=== PATIENT | female | born 1950 | race Caucasian/White ===

== ENCOUNTER 2020-02-17 10:54 | Inpatient (IN) ==
[2020-02-10 16:24] LABS: INR 0.9 (0.9-1.1); Prothrombin Time 12.6 sec (11.9-14.5)
[2020-02-10 16:41] LABS: Basophils # (Auto) 0.06 K/mcL (0.00-0.30); Eosinophils # (Auto) 0.38 K/mcL (0.00-0.70); Eosinophils % (Auto) 6.5 % (0.0-7.0); Granulocytes % (Auto) 54.3 % (38.0-78.0); Hematocrit 38.8 % (34.1-44.9); Hemoglobin 12.7 g/dL (11.2-15.7); Lymphocytes # (Auto) 1.69 K/mcL (1.50-4.80); Lymphocytes % (Auto) 28.7 % (15.5-49.0); Mean Cell Volume 92.6 fL (80.0-100.0); Mean Corpuscular HGB Conc 32.7 g/dL (31.0-36.0); Mean Platelet Volume 9.7 fL (7.4-10.4); Monocytes # (Auto) 0.56 K/mcL (0.10-0.90); Monocytes % (Auto) 9.5 % (1.0-12.0); Platelet Count 185 K/mcL (140-440); RBC 4.19 M/mcL (3.59-5.38); Red Cell Distribution Width 12.3 % (11.5-14.5); WBC 5.9 K/mcL (4.50-11.00)
[2020-02-10 17:33] LABS: Appearance,Urine CLEAR; Bilirubin,Urine NEG (NEG); Color,Urine YELLOW; Culture Indicated,Urine NO; Glucose,Urine (UA) NEGATIVE (NEG); Ketones,Urine 5/TR mg/dL (NEG); Leukocyte Esterase,Urine NEG /uL (NEG); Nitrate,Urine NEG (NEG); Protein,Urine NEG (NEG); Urine Blood NEG mg/dL (<0.03); Urobilinogen,Urine NEG (NEG)
[2020-02-10 17:49] LABS: Blood Urea Nitrogen 24 mg/dl (8-23); Calcium 9.2 mg/dl (8.6-10.4); Carbon Dioxide 25 mmol/L (22-30); Chloride 100 mmol/L (96-108); Glomerular Filtration Rate 38; Glucose 91 mg/dL (70-105)
[~2020-02-17 10:54] MED LIST: CELECOXIB 200 MG CAPSULE PO SCH; GABAPENTIN 300 MG CAPSULE PO SCH; IPRATROPIUM/ALBUTEROL 3 ML AMPUL.NEB NEB PRN; SCOPOLAMINE 1 PATCH PATCH TOPICAL PRN; ceFAZolin 3 GM in DEXTROSE 5% IN WATER 50 ML IV SCH; oxyCODONE 10 MG TAB.ER.12H PO SCH
[2020-02-17] MEDS ORDERED: 0.9 % SODIUM CHLORIDE 10 ML SYRINGE IV PRN (11:34)
--- NOTE | 2020-02-17 12:42 | XRay Report ---
INDICATION: PICC PLACEMENT TECHNIQUE: AP portable semiupright chest x-ray COMPARISON: None FINDINGS:Right-sided PICC line with its tip in the proximal right atrium. Lungs:Lungs are negative. No focal pulmonary parenchymal infiltrate or mass Heart, vascular:No significant cardiomegaly. Pulmonary vascularity is normal. No pulmonary edema or pulmonary congestion Mediastinum, martha:No mediastinal widening. No hilar mass Pleura:No pleural fluid. No pleural-based mass or calcification Skeletal:Negative. IMPRESSION: 1. Right-sided PICC line with its tip in the proximal right atrium 2. Otherwise negative examination Interpreted and Authenticated by: Christian Daniels 02/17/20
[2020-02-17] MEDS ORDERED: fentaNYL 100 MCG/2 ML VIAL IV ONE (15:20)
[2020-02-17] MEDS ORDERED: DEXAMETHASONE 10 MG/ML VIAL IV ONE (15:20)
[2020-02-17] MEDS ORDERED: ONDANSETRON 4 MG/2 ML VIAL IV ONE (15:20)
[2020-02-17] MEDS ORDERED: KETAMINE 100 MG/ML ML IV ONE (15:20)
[2020-02-17] MEDS ORDERED: LIDOCAINE HCL/PF 100 MG/5 ML SYRINGE IV ONE (15:20)
[2020-02-17] MEDS ORDERED: PROPOFOL 200 MG/20 ML VIAL IV ONE (15:20)
[2020-02-17] MEDS ORDERED: SUCCINYLCHOLINE 20 MG/ML ML IV ONE (15:20)
[2020-02-17] MEDS ORDERED: GENTAMICIN SULFATE 800 MG/20 ML VIAL IR ONE (15:49)
[2020-02-17] MEDS ORDERED: IPRATROPIUM/ALBUTEROL 3 ML AMPUL.NEB NEB PRN (15:56)
[2020-02-17] MEDS ORDERED: MEPERIDINE 25 MG/ML SYRINGE IV PRN (15:56)
[2020-02-17] MEDS ORDERED: HYDROmorphone 0.5 MG/0.5 ML SYRINGE IV PRN (15:56)
[2020-02-17] MEDS ORDERED: diphenhydrAMINE 50 MG/ML VIAL IV PRN (15:56)
[2020-02-17] MEDS ORDERED: FLUMAZENIL 0.1 MG/ML ML IV PRN (15:56)
[2020-02-17] MEDS ORDERED: ATROPINE SULFATE 0.4 MG/ML VIAL IV PRN (15:56)
[2020-02-17] MEDS ORDERED: METOPROLOL TARTRATE 5 MG/5 ML VIAL IV PRN (15:56)
[2020-02-17] MEDS ORDERED: ePHEDrine 50 MG/ML AMPUL IV PRN (15:56)
[2020-02-17] MEDS ORDERED: ACETAMINOPHEN 1,000 MG/100 ML BOTTLE IV ONE (15:56)
[2020-02-17] MEDS ORDERED: PROMETHAZINE 25 MG/ML VIAL IV PRN (15:56)
[2020-02-17] MEDS ORDERED: METHOCARBAMOL 1,000 MG/10 ML VIAL IV PRN (15:56)
[2020-02-17] MEDS ORDERED: ONDANSETRON 4 MG/2 ML VIAL IV PRN (15:56)
[2020-02-17] MEDS ORDERED: LACTATED RINGERS 1,000 ML IV SCH (16:00)
[2020-02-17] MEDS ORDERED: ONDANSETRON 4 MG ODT TABLET SL PRN (16:34)
--- NOTE | 2020-02-17 16:34 | General Surgery Procedure Note ---
Date of procedure: Note initiated : 02/17/20 at 4:32 pm Service Date, if different from initiated Date: [] Pre-op diagnosis: right heal infection with retained hardware, possible osteomyelitis Post-op diagnosis: same Procedure: right heal irrigation and debridement, hardware removal, bone biopsy Findings: infection deep, no obvious osteomyelitis Anesthesia: PAULO Surgeon: Christian Nolen Landscape Drafter: Rodney Deng Estimated blood loss: 100 Pathology: other Condition: stable Disposition: PACU
--- NOTE | 2020-02-17 16:35 | Discharge Plan ---
DC Instructions-General Patient Instructions Dressing Care: May shower in 2 days Discharge Plan Patient/Caregiver Discharge Instructions Activity: ambulate only with your walker Diet: Regular Diet Prescriptions: No Action bupropion HCl 100 MG tablet sustained-release 12 hr 100 mg PO DAILY RF: 0 gabapentin 300 MG capsule 300 mg PO TID@0800,1200,1600 RF: 0 diclofenac sodium 75 MG tablet 75 mg PO BID RF: 0 hydroxychloroquine 200 MG tablet 400 mg PO DAILY RF: 0 losartan 100 MG tablet 100 mg PO DAILY RF: 0 oxybutynin chloride 10 mg Tablet Extended Release 24hr 10 mg PO HS RF: 0 hydrocodone-acetaminophen [[place]] 10-325 mg Tablet 1 tab PO Q12HP PRN (Reason: Pain) RF: 0 nitrofurantoin macrocrystal 100 mg Capsule 100 mg PO QHS RF: 0 gabapentin 300 mg Capsule 900 mg PO QHS RF: 0 morphine 15 mg Tablet Extended Release 15 mg PO Q12H RF: 0 ergocalciferol (vitamin D2) 1,250 mcg (50,000 unit) Capsule 1,250 mcg PO MOTH@0900 RF: 0 Restasis 0.05 % [place] 1 drp OPHTHALMIC (EYE) Q12H RF: 0 Myrbetriq 50 mg Tablet Extended Release 24 Hr 50 mg PO QDAY RF: 0 duloxetine 20 mg Capsule, Delayed Rel Sprinkle 60 mg PO DAILY RF: 0 cephalexin 500 MG capsule 500 mg PO TID 7 Days Qty: 21 RF: 0 Follow Up Plan Follow up with: Christian Nolen MD [Physician] - Patient Disposition: Home, Self-Care Rehab Potential: Good I certify that the patient requires SNF services: No Overall status at discharge: patient is progressing back to baseline Discharge Orders: Discharge Order (Routine); Ordered 02/18/20 Ordered By: Christian Nolen
[2020-02-17] MEDS: fentaNYL 100 MCG/2 ML VIAL IV PRN ×5 (17:20→17:38)
[2020-02-17] MEDS: HYDROcodone/APAP 10/325MG TABLET PO PRN (19:41)
[2020-02-17] MEDS: LACTATED RINGERS 1,000 ML IV SCH (19:42)
[2020-02-17] MEDS: NITROFURANTOIN SR 100 MG CAPSULE PO SCH (21:40)
[2020-02-17] MEDS: OXYBUTYNIN CHLORIDE 5 MG TAB.XL.24H PO SCH (21:40)
[2020-02-17] MEDS: morphine 15 MG TAB.SR.12H PO SCH (21:41)
[2020-02-17] MEDS: GABAPENTIN 300 MG CAPSULE PO SCH (21:41)
[2020-02-17] MEDS: CYCLOSPORINE 0.05% OU SCH (21:41)
[2020-02-17] MEDS: 0.9 % SODIUM CHLORIDE 10 ML SYRINGE IV SCH (21:42)
[2020-02-17] MEDS ORDERED: 0.9 % SODIUM CHLORIDE 10 ML SYRINGE IV SCH (22:00)
[2020-02-18] MEDS: ceFAZolin 1 GM VIAL IV SCH ×3 (00:36→17:10)
[2020-02-18] MEDS: HYDROcodone/APAP 10/325MG TABLET PO PRN ×5 (00:48→20:10)
[2020-02-18] MEDS: LACTATED RINGERS 1,000 ML IV SCH (02:20)
--- NOTE | 2020-02-18 07:37 | Operative Note ---
DATE OF OPERATION: 02/17/2020 PREOPERATIVE DIAGNOSIS: Right calcaneal infection with recurrent drainage status post previous open reduction and internal fixation of calcaneus fracture. POSTOPERATIVE DIAGNOSIS: Right calcaneal infection with recurrent drainage status post previous open reduction and internal fixation of calcaneus fracture. PROCEDURE PERFORMED: 1. Right heel irrigation and debridement of skin and subcutaneous tissue, fascia and bone. 2. Right heel bone biopsy. 3. Right heel hardware removal. SURGEON: Jeanna Nolen MD TOOL CRIB LEAD: Rodney Deng PA-C and Roni Dave PA-C. These providers' expertise and technical skill were required throughout the case. The PAs assisted with preoperative coordination, intraoperative retraction, wound closure, dressing and splint application, as well as postoperative documentation and care coordination. ANESTHESIA: General. FINDINGS: 1. Retained hardware with a 90% healed calcaneal tuberosity fracture with intact Achilles tendon. 2. Draining sinus which was debrided. 3. No overt evidence of osteomyelitis. INDICATIONS: The patient is a 69-year-old female. She underwent open reduction and internal fixation of a calcaneal fracture about 8 months ago. She has had recurrent wound problems with drainage from a draining sinus. It healed up and we were going to do a hip replacement but over the weekend it opened up and started draining again. It was cultured for gram positive cocci, but sensitivities are pending. At this point, we felt the hardware removal would be the best option as well as irrigation and debridement, and bone biopsy to make sure there is no osteomyelitis and we can treat the infection prior to proceeding with any type of surgery on her hip. She would like to proceed with surgical intervention. The risks and benefits were discussed with the patient in detail including, but not limited to, the risks of anesthesia, problems with the heart or lungs related to anesthesia, infection, compromise or injury to the nerves and blood vessels, deep venous thrombosis, pulmonary embolism, pneumonia, continued pain after surgery, worsening pain or symptoms after surgery, swelling, loss of motion, re-tear or failure of repair site, and need for repeat surgery. DESCRIPTION OF PROCEDURE: The patient was seen preoperatively where site and side were properly identified and marked, and all questions were answered. She was then transferred to the operating room. Antibiotics were withheld. She was placed in the ortez bag in the left lateral decubitus position, prepped and draped in the usual sterile fashion from the toes up to the knee. An Esmarch bandage was used to place a calf tourniquet. I then incised through the old hockey stick incision at the calcaneus. I incised down through the skin and subcutaneous tissue and mobile windows were created medially and laterally. We biopsied this area. Distal to this incision, there was a draining sinus which is about 1 cm and deep to the bone. I excised this and ellipsed it and removed it in its entirety, and all the fibrinous tissue underneath. We debrided the subcutaneous tissue and then some of the bony debris underneath. I then came down to the plate, removed all the screws and then the plate. We debrided around the fibrinous tissue, around the calcaneus. The superior tuberosity was about 90% healed and intact Achilles tendon, so I elected to leave it as it was. I used a bone biopsy kit to biopsy the bone around the area of the sinus. We sent this off to the lab to the pathologist and a second biopsy was done for culture. We also cultured the wound deep. We thoroughly irrigated with gentamicin soaked saline under jet lavage 9 liters as well as the IrriSept. I then visualized and everything was intact with no evidence of further infection in the skin and subcutaneous tissue was clean. We used 0 Monocryl to sew up the deep layer. The subcutaneous layer was closed with 3-0 Monocryl and the skin was closed with 3-0 Prolene. She was dressed with Xeroform 4 x 4, ABD and an Smith bandage. She was placed into a pneumatic walking boot. She was given antibiotics after the cultures. She was then extubated and transferred to stretcher and taken to PACU in stable condition. SPECIMENS: None. COMPLICATIONS: None. DRAINS: None. DISPOSITION: To PACU in stable condition. ANISH:cassidy Job ID: [id number] Doc ID: [id number] Jeanna Nolen MD
--- NOTE | 2020-02-18 07:52 | Orthopedic Progress Note ---
SUBJECTIVE Subjective Patient information: Note initiated : 02/18/20 at 7:50 am Service Date, if different from initiated Date: [] Patient: Eva Hernandez 69 y/o F admitted on for Left Total Hip Arthroplasty Anterior. Chief Complaint: [doing well. pain under control] Constitutional Vitals: Vital Signs Temp Pulse Resp BP Pulse Ox 97.7 F 89 20 136/74 94 02/18/20 02:42 02/18/20 02:42 02/18/20 02:42 02/18/20 02:42 02/18/20 02:42 Period Temp Pulse Resp BP Sys/[place] Pulse Ox Last 24 Hr 97.5 F-98.7 F 78-106 13-20 122-160/48-96 88-100 Intake and Output 02/17/20 02/18/20 02/18/20 21:59 05:59 13:59 Intake Total 1600 1364 Output Total 200 1000 Balance 1400 364 Weight 276 lb Intake & Output: Intake & Output 02/17/20 02/18/20 02/18/20 21:59 05:59 13:59 Intake Total 1600 1364 Output Total 200 1000 Balance 1400 364 Weight 276 lb Intake: IV 100 464 Lactated Ringers 1,000 ml @ 50 464 mls/hr IV .Q20H [facility] Rx#: [id number] Oral 900 IV - Manual Only 1500 Output: Void Amount 200 1000 Other: Urine Appearance Clear Clear Urine Color Bright Yellow Bright Yellow Expanded Lower Extremity Exam Foot/Toe exam: Present calcaneal tenderness, full ROM, swelling and tenderness; Absent ecchymosis and erythema OBJ DATA Labs CBC & Chem 7: 02/10/20 15:16 02/10/20 15:16 Meds: Medications Hydrocodone Bitart/Acetaminophen ([place] 10/325mg) 0 tab PO Q4HP PRN; Protocol PRN Reason: Per Pain Protocol Last Admin: 02/18/20 04:39 Dose: 2 tab Documented by: Bupropion HCl (Wellbutrin Sr) 100 mg PO DAILY [facility] Cefazolin Sodium (Ancef) 2 gm IV Q8H [facility] Last Admin: 02/18/20 00:36 Dose: 2 gm Documented by: Duloxetine HCl (Cymbalta) 60 mg PO DAILY [facility] Gabapentin (Neurontin) 900 mg PO QHS [facility] Last Admin: 08/18/20 21:41 Dose: 900 mg Documented by: Gabapentin (Neurontin) 300 mg PO TID@0800,1200,1600 [facility] Heparin Sodium (Porcine) (Heparin 10 Units/Ml Flush) 2 ml IV Q12 [facility] Last Admin: 02/17/20 21:41 Dose: 2 ml Documented by: Hydroxychloroquine Sulfate (Plaquenil) 400 mg PO DAILY [facility] Losartan Potassium (Cozaar) 100 mg PO DAILY [facility] Morphine Sulfate (Morphine) 0 mg IV Q1HP PRN; Protocol PRN Reason: PAIN LEVEL > 6 Morphine Sulfate (Ms Contin) 15 mg PO Q12H [facility]; Protocol Last Admin: 02/17/20 21:41 Dose: 15 mg Documented by: Nitrofurantoin Macrocrystals (Macrobid) 100 mg PO [facility] Last Admin: 02/17/20 21:40 Dose: 100 mg Documented by: Ondansetron HCl (Zofran Odt) 4 mg SL Q6HP PRN; Protocol PRN Reason: Nausea And Vomiting Oxybutynin Chloride (Ditropan Xl) 10 mg PO [facility] Last Admin: 02/17/20 21:40 Dose: 10 mg Documented by: Cyclosporine [ Restasis] 0.05% Ophthalmic Solution 1 dose OU Q12H [facility] Last Admin: 02/17/20 21:41 Dose: Not Given Documented by: Mirabegron [ Myrbetriq] 50 Mg Er Tablet 1 dose PO DAILY [facility] Sodium Chloride (Saline Flush) 10 ml IV UD PRN PRN Reason: FLUSH Sodium Chloride (Saline Flush) 10 ml IV Q12 [facility] Last Admin: 02/17/20 21:42 Dose: 10 ml Documented by: Impressions Impression: s/p i and d and hardware removal A/P Narrative A/P Narrative: pod 1 s/p i and d and hardware removal home day with iv abx per dr. rogers Time Spent With Patient Time: Total time spent is greater than 50% in coordination of care (as documented) at patient's floor/unit and/or counseling patient:
[2020-02-18] MEDS: HYDROXYCHLOROQUINE 200 MG TABLET PO SCH (08:47)
[2020-02-18] MEDS: buPROPion 100 MG TAB.SR.12H PO SCH (08:48)
[2020-02-18] MEDS: DULoxetine 30 MG CAPSULE PO SCH (08:48)
[2020-02-18] MEDS: LOSARTAN 50 MG TABLET PO SCH (08:48)
[2020-02-18] MEDS: GABAPENTIN 300 MG CAPSULE PO SCH ×4 (08:49→21:20)
[2020-02-18] MEDS: CYCLOSPORINE 0.05% OU SCH ×2 (08:51→21:22)
[2020-02-18] MEDS: MIRABEGRON 50 MG PO SCH (08:51)
[2020-02-18] MEDS: 0.9 % SODIUM CHLORIDE 10 ML SYRINGE IV SCH ×2 (08:51→21:22)
[2020-02-18] MEDS: morphine 15 MG TAB.SR.12H PO SCH ×2 (12:30→21:26)
[2020-02-18 15:21] LABS: Basophils # (Auto) 0.02 K/mcL (0.00-0.30); Basophils % (Auto) 0.2 % (0.0-2.0); Eosinophils # (Auto) 0.01 K/mcL (0.00-0.70); Eosinophils % (Auto) 0.1 % (0.0-7.0); Granulocytes % (Auto) 77.5 % (38.0-78.0); Hematocrit 35.1 % (34.1-44.9); Hemoglobin 11.6 g/dL (11.2-15.7); Lymphocytes # (Auto) 1.13 K/mcL (1.50-4.80); Lymphocytes % (Auto) 11.7 % (15.5-49.0); Mean Cell Volume 92.4 fL (80.0-100.0); Mean Platelet Volume 9.9 fL (7.4-10.4); Monocytes # (Auto) 1.01 K/mcL (0.10-0.90); Monocytes % (Auto) 10.5 % (1.0-12.0); Platelet Count 175 K/mcL (140-440); WBC 9.7 K/mcL (4.50-11.00)
--- NOTE | 2020-02-18 15:32 | Infectious Disease Consult ---
HPI Data of Consult Primary Care Provider: Ubaldo Tse Consult Narrative cc:: CC: Christian Osbornlinek 69-year-old lady with right calcaneal fracture, s/p ORIF and, well known tome from her last visit back in Aug-August 2019 for management of right heel infection, is admitted after bumping lateral side of right foot while walking, and subsequently developing a small wound with yellow colored drainage. Pt was seen in the [facility] ED on 02/14. She had been afebrile, with no chills. She denied any other symptoms. She was seen by Dr Nolen as well who was planning on to doing a right PAUL but because of this infection, postponed it. Pt was taken to OR on 02/16, and underwent: 1. Right heel irrigation and debridement of skin and subcutaneous tissue, fascia and bone. 2. Right heel bone biopsy. 3. Right heel hardware removal. Pt had been on IV cefazolin 2 gm q8 hrs after surgery. She got a PICC line placed today. After talking with her and her daughter, she confirmed the above Hx, added that her right heel wound from never healed completely, as she would often bump into something and it would drain for few weeks and then stop, and it would happen again. This time around the weekend, she decided to come to ED as it was slightly red and draining pus. She denied any Hx of diabetes. Review of Systems All systems: reviewed and no additional remarkable complaints except as stated PFSH PFSH All Active Problems (Updated 02/19/20 @ 07:03 by Vin Dave PA-C) Ankle wound (Acute) Calcaneus fracture, right (Acute) Medical History Abdominal pain (Acute) Acute sinusitis (Acute) Cholelithiasis (Acute) Closed right ankle fracture (Acute) surgery 06/24/19 COPD (chronic obstructive pulmonary disease) (Chronic) Depression (Chronic) Disorder of bone density and structure, unspecified (Acute) Disorder of muscle, ligament, and fascia (Acute) Dysphagia (Acute) Edema (Chronic) Fibromyalgia (Chronic) Glucose intolerance (impaired glucose tolerance) (Chronic) Headache (Acute) Heartburn (Chronic) Hepatic cyst (Acute) Hot flashes due to menopause (Acute) Hypertension (Chronic) Jaw pain (Acute) Lumbar herniated disc (Chronic) Menopausal symptoms (Acute) Microscopic hematuria (Acute) NAFLD (nonalcoholic fatty liver disease) (Acute) Neck pain (Acute) Nocturia (Acute) OA (osteoarthritis) of knee (Acute) Obstructive sleep apnea (Acute) Osteoarthritis (Chronic) Osteopenia (Chronic) Overweight (Acute) Pancreatic cyst (Acute) Polyarthritis (Chronic) Postmenopausal atrophic vaginitis (Chronic) Renal cyst (Acute) Sjogrens syndrome (Chronic) Tremor, essential (Chronic) Urination frequency (Chronic) UTI (urinary tract infection) (Acute) Vitamin D deficiency (Acute) Surgical History History of left knee replacement (Chronic) Social History smoking status: Former smoker alcohol intake frequency: does not drink substance use type: does not use MEDS/ALLERGIES Home Medications and Allergies Home Medications Medication Instructions Recorded Confirmed Type bupropion HCl 100 mg PO DAILY 06/23/19 02/17/20 History diclofenac sodium 75 mg PO BID 06/23/19 02/17/20 History gabapentin 300 mg PO TID@0800,1200,1600 06/23/19 02/17/20 History hydroxychloroquine 400 mg PO DAILY 06/23/19 02/17/20 History losartan 100 mg PO DAILY 06/23/19 02/17/20 History cyclosporine [Restasis] 1 drp OPHTHALMIC (EYE) Q12H 02/10/20 02/17/20 History ergocalciferol (vitamin D2) 1,250 mcg PO MOTH@0900 02/10/20 02/17/20 History gabapentin 900 mg PO QHS 02/10/20 02/17/20 History hydrocodone-acetaminophen [[place]] 1 tab PO Q12HP PRN 02/10/20 02/17/20 History mirabegron [Myrbetriq] 50 mg PO QDAY 02/10/20 02/17/20 History morphine 15 mg PO Q12H 02/10/20 02/17/20 History nitrofurantoin macrocrystal 100 mg PO QHS 02/10/20 02/17/20 History oxybutynin chloride 10 mg PO HS 02/10/20 02/17/20 History cephalexin 500 mg PO TID 7 Days #21 cap 02/15/20 02/17/20 Rx duloxetine 60 mg PO DAILY 02/17/20 02/17/20 History hydrocodone-acetaminophen 1 tab PO Q6H PRN #60 tab 02/17/20 Rx ceftriaxone 2 g IV Q24H 56 Days each 02/19/20 Rx Allergies Allergy/AdvReac Type Severity Reaction Status Date / Time codeine AdvReac Mild Dizziness Verified 02/17/20 11:16 Physical Examination Vital Signs Vital signs: Temp Pulse Resp BP Pulse Ox 36.7 C 88 20 164/80 95 02/18/20 11:56 02/18/20 13:00 02/18/20 11:56 02/18/20 11:56 02/18/20 11:56 Constitutional General appearance: no acute distress and alert Extremities Extremities: other (right arm PICC line under dressing, right foot and heel: swelling around the surgical wound, no redness, stitches intact, minimal serosanguineous drainage, no warmth, minimally tender. No blisters or ulcers in surround part of the leg and foot.) Results Laboratory Findings CBC and BMP: 02/18/20 14:46 02/18/20 14:46 ABG, PT/INR, D-dimer: PT/INR, D-dimer PT 12.6 sec (11.9-14.5) 02/10/20 15:16 INR 0.9 (0.9-1.1) 02/10/20 15:16 Abnormal lab findings: Abnormal Labs 02/10/20 02/10/20 02/18/20 15:16 15:16 14:46 Lymph % (Auto) 11.7 L Lymph # (Auto) 1.13 L [place] # (Auto) 1.01 H BUN 24 H Creatinine 1.4 H Urine Ketones 5/tr A Microbiology: Microbiology 02/17/20 17:16 Bone Gram Stain - Final 02/17/20 17:16 Bone Tissue Culture - Preliminary 02/17/20 17:16 Ankle - Right Gram Stain - Final 02/17/20 17:16 Ankle - Right Wound Culture - Preliminary 02/17/20 17:16 Ankle - Right Anaerobic Culture - Preliminary 02/17/20 17:16 Bone - Right Gram Stain - Final 02/17/20 17:16 Bone - Right Anaerobic Culture - Preliminary 02/10/20 15:16 Nose MRSA (PCR) - Final A/P Narrative A/P Narrative: A: 1. 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 Both foot x-ray and CT are neg for osteomyelitis but these modalities are not 100% diagnostic and could miss cases of osteomyelitis. NO MRI available. - Bone Bx diagnostic of calcaneal osteomyelitis: The biopsy has fragmented portions of lamellar bone with areas of degenerative change, chronic inflammation and rare aggregates of neutrophils. The findings are suspicious for acute osteomyelitis - preliminary gram stain from operative Cx showed GPC, but both aerobic and anerobic Cx NGTD. - no sepsis Recommendations: - Will plan for a 6-8 week course of antibiotics for treatment of calcaneal osteomyelitis - send CBC with diff, CMP, CK - stop IV Cefazolin - start IV Daptomycin 1000 mg q24 hrs and IV ceftriaxone 2 gm q24 hrs - right foot offloading, leg elevation, wound care will follow Obinna Servin MD Infectious Diseases Time Spent With Patient Time: Total time spent is greater than 50% in coordination of care (as documented) at patient's floor/unit and/or counseling patient:
[2020-02-18 15:38] LABS: ALT/SGPT 14 U/l (0-40); AST/SGOT 20 U/l (0-37); Albumin 4.1 gm/dL (3.2-5.2); Albumin/Globulin Ratio 1.8 (1.0-2.3); Alkaline Phosphatase 90 U/L (39-117); Bilirubin,Total 0.3 mg/dL (0.0-1.0); Blood Urea Nitrogen 23 mg/dl (8-23); Calcium 8.7 mg/dl (8.6-10.4); Carbon Dioxide 25 mmol/L (22-30); Chloride 98 mmol/L (96-108); Globulin 2.3 gm/dL (2.2-3.7); Glomerular Filtration Rate 51; Glucose 123 mg/dL (70-105)
--- NOTE | 2020-02-18 17:07 | XRay Report ---
INDICATION: History of avulsion fracture of the calcaneal tuberosity. Status post hardware removal. Pain and swelling TECHNIQUE: AP, oblique, lateral right foot COMPARISON: Preoperative right foot dated 06/18/2019. Previous CT scan dated 02/15/2020 FINDINGS: History of previous calcaneal tuberosity avulsion fracture. This was treated with open reduction and internal fixation. Patient has undergone interval removal of orthopedic hardware since 02/15/2020 Screw tracks within the calcaneus are identified. No focal cortical destruction or definite plain film evidence for osteomyelitis. Findings are consistent with osteopenia involving the right foot. This may be secondary to disuse. There is generalized soft tissue swelling in the right midfoot and hindfoot. No soft tissue gas or radiopaque foreign body. No acute fracture IMPRESSION: 1. Status post removal of orthopedic hardware from the calcaneal tuberosity 2. Soft tissue swelling in the right midfoot and hindfoot 3. No soft tissue gas or radiopaque foreign body. No plain film evidence for osteomyelitis 4. No acute fracture Interpreted and Authenticated by: Christian Daniels 02/18/20
[2020-02-18] MEDS: OXYBUTYNIN CHLORIDE 5 MG TAB.XL.24H PO SCH (21:20)
[2020-02-18] MEDS: NITROFURANTOIN SR 100 MG CAPSULE PO SCH (21:21)
[2020-02-19] MEDS: HYDROcodone/APAP 10/325MG TABLET PO PRN ×3 (02:23→13:23)
--- NOTE | 2020-02-19 07:03 | Orthopedic Consult Note ---
HPI Data of Consult Primary Care Provider: Ubaldo Tse Consult Narrative cc:: CC: Christian Nolen Review of Systems Review of systems: 10 systems reviewed, negative except where mentioned in HPI PFSH PFSH All Active Problems (Updated 02/19/20 @ 07:03 by Vin Dave PA-C) Ankle wound (Acute) Calcaneus fracture, right (Acute) Medical History Abdominal pain (Acute) Acute sinusitis (Acute) Cholelithiasis (Acute) Closed right ankle fracture (Acute) surgery 06/24/19 COPD (chronic obstructive pulmonary disease) (Chronic) Depression (Chronic) Disorder of bone density and structure, unspecified (Acute) Disorder of muscle, ligament, and fascia (Acute) Dysphagia (Acute) Edema (Chronic) Fibromyalgia (Chronic) Glucose intolerance (impaired glucose tolerance) (Chronic) Headache (Acute) Heartburn (Chronic) Hepatic cyst (Acute) Hot flashes due to menopause (Acute) Hypertension (Chronic) Jaw pain (Acute) Lumbar herniated disc (Chronic) Menopausal symptoms (Acute) Microscopic hematuria (Acute) NAFLD (nonalcoholic fatty liver disease) (Acute) Neck pain (Acute) Nocturia (Acute) OA (osteoarthritis) of knee (Acute) Obstructive sleep apnea (Acute) Osteoarthritis (Chronic) Osteopenia (Chronic) Overweight (Acute) Pancreatic cyst (Acute) Polyarthritis (Chronic) Postmenopausal atrophic vaginitis (Chronic) Renal cyst (Acute) Sjogrens syndrome (Chronic) Tremor, essential (Chronic) Urination frequency (Chronic) UTI (urinary tract infection) (Acute) Vitamin D deficiency (Acute) Surgical History History of left knee replacement (Chronic) Social History smoking status: Former smoker alcohol intake frequency: does not drink substance use type: does not use MEDS/ALLERGIES Home Medications and Allergies Home Medications Medication Instructions Recorded Confirmed Type bupropion HCl 100 mg PO DAILY 06/23/19 02/17/20 History diclofenac sodium 75 mg PO BID 06/23/19 02/17/20 History gabapentin 300 mg PO TID@0800,1200,1600 06/23/19 02/17/20 History hydroxychloroquine 400 mg PO DAILY 06/23/19 02/17/20 History losartan 100 mg PO DAILY 06/23/19 02/17/20 History cyclosporine [Restasis] 1 drp OPHTHALMIC (EYE) Q12H 02/10/20 02/17/20 History ergocalciferol (vitamin D2) 1,250 mcg PO MOTH@0900 02/10/20 02/17/20 History gabapentin 900 mg PO QHS 02/10/20 02/17/20 History hydrocodone-acetaminophen [[place]] 1 tab PO Q12HP PRN 02/10/20 02/17/20 History mirabegron [Myrbetriq] 50 mg PO QDAY 02/10/20 02/17/20 History morphine 15 mg PO Q12H 02/10/20 02/17/20 History nitrofurantoin macrocrystal 100 mg PO QHS 02/10/20 02/17/20 History oxybutynin chloride 10 mg PO HS 02/10/20 02/17/20 History cephalexin 500 mg PO TID 7 Days #21 cap 02/15/20 02/17/20 Rx duloxetine 60 mg PO DAILY 02/17/20 02/17/20 History hydrocodone-acetaminophen 1 tab PO Q6H PRN #60 tab 02/17/20 Rx Allergies Allergy/AdvReac Type Severity Reaction Status Date / Time codeine AdvReac Mild Dizziness Verified 02/17/20 11:16 Physical Examination Ankle & Foot right: Ankle appearance: swelling (mild postoperative swelling ) and previous incision (dressing clean dry and intact ) Foot appearance: swelling (mild postoperative swelling ) A/P Assessment and plan (1) Ankle wound: Status: Acute Comment: patient seen and examined this am, she is in good spirits, alert and conversant. expectant and eager to go home. active range of motion right ankle normal, both lower extremities neurovasculary intact no complaints, feels pain is well managed, although she has back discomfort from hospital bed. expected d/c today after consult with ID concerning antibiotic management. Qualifiers: Encounter type: initial encounter Laterality: right Qualified Code(s): S91.001A - Unspecified open wound, right ankle, initial encounter Time Spent With Patient Time: Total time spent is greater than 50% in coordination of care (as documented) at patient's floor/unit and/or counseling patient:
[2020-02-19] MEDS ORDERED: DAPTOmycin 500 MG VIAL IV SCH (08:00)
[2020-02-19] MEDS: HYDROXYCHLOROQUINE 200 MG TABLET PO SCH (08:20)
[2020-02-19] MEDS: morphine 15 MG TAB.SR.12H PO SCH (08:21)
[2020-02-19] MEDS: DULoxetine 30 MG CAPSULE PO SCH (08:21)
[2020-02-19] MEDS: LOSARTAN 50 MG TABLET PO SCH (08:22)
[2020-02-19] MEDS: GABAPENTIN 300 MG CAPSULE PO SCH ×2 (08:23→12:11)
[2020-02-19] MEDS: MIRABEGRON 50 MG PO SCH (08:24)
[2020-02-19] MEDS: CYCLOSPORINE 0.05% OU SCH (08:26)
[2020-02-19] MEDS: buPROPion 100 MG TAB.SR.12H PO SCH (08:30)
[2020-02-19] MEDS: 0.9 % SODIUM CHLORIDE 10 ML SYRINGE IV SCH (08:30)
[2020-02-19] MEDS ORDERED: cefTRIAXone 2 GM in DEXTROSE 5% IN WATER 50 ML IV SCH (09:00)
--- NOTE | 2020-02-19 12:51 | Surgical Pathology Report ---
HISTOLOGY SPECIMEN MICROSCOPIC DIAGNOSIS BONE, RIGHT CALCANEUS, BIOPSY: -- FRAGMENTED PORTIONS OF LAMELLAR BONE WITH CHRONIC INFLAMMATION AND RARE AGGREGATES OF NEUTROPHILS. (SEE COMMENT) (ACP:adj) COMMENT: The biopsy has fragmented portions of lamellar bone with areas of degenerative change, chronic inflammation and rare aggregates of neutrophils. The findings are suspicious for acute osteomyelitis. Clinical correlation is recommended. PROCEDURAL IMPRESSION Right ankle infection. GROSS DESCRIPTION Received in formalin labeled right calcaneal bone biopsy, is a 0.3 x 0.2 x 0.2 cm friable pink to red-dinero bone fragment. Totally submitted - one cassette. (STS:sln) Electronically Signed by: Martin Black M.D.
--- NOTE | 2020-02-19 21:59 | Internal Med Progress Note ---
SUBJECTIVE Subjective Patient information: Note initiated : 02/19/20 at 9:50 pm Service Date, if different from initiated Date: [] Patient: Eva Hernandez 69 y/o F admitted on 02/18/20 for Left Total Hip Arthroplasty Anterior. Chief Complaint: [pt doing better. Denied any fever, chills, n/v, diarrhea. Endorses right foot pain. ] Constitutional Vitals: Vital Signs Temp Pulse Resp BP Pulse Ox 36.8 C 70 18 120/81 94 02/19/20 15:06 02/19/20 15:06 02/19/20 15:06 02/19/20 15:06 02/19/20 15:06 Period Temp Pulse Resp BP Sys/[place] Pulse Ox Last 24 Hr 36.4 C-36.8 C 70-93 12-18 120-133/77-81 91-97 Intake and Output 02/19/20 02/19/20 02/19/20 05:59 13:59 21:59 Intake Total 200 480 Balance 200 480 Weight 125.645 kg Intake & Output: Intake & Output 02/19/20 02/19/20 02/19/20 05:59 13:59 21:59 Intake Total 200 480 Balance 200 480 Weight 125.645 kg Intake: Oral 200 480 Other: Meal Lunch Percent of Meal Consumed 100% Feeding Ability Independent # Voids 1 Additional findings Additional findings: ao x 3, in nad no thrush right foot: flako in place over lateral aspect of heel, with some serosanguineous drainage. No redness. +ve swelling and tenderness. No pus drainage. Peripheral pulses palpable OBJ DATA Labs CBC & Chem 7: 02/18/20 14:46 02/18/20 14:46 Labs: Abnormal Lab Results 02/18/20 02/18/20 14:46 14:46 Lymph % (Auto) 11.7 L Lymph # (Auto) 1.13 L [place] # (Auto) 1.01 H Glucose 123 H A/P Narrative A/P Narrative: A: 1. 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 Both foot x-ray and CT are neg for osteomyelitis but these modalities are not 100% diagnostic and could miss cases of osteomyelitis. NO MRI available. - Bone Bx diagnostic of calcaneal osteomyelitis: The biopsy has fragmented portions of lamellar bone with areas of degenerative change, chronic inflammation and rare aggregates of neutrophils. The findings are suspicious for acute osteomyelitis - preliminary gram stain from operative Cx showed GPC, but both aerobic and anerobic Cx NGTD. - no sepsis Recommendations: - Continue IV Daptomycin 1000 mg q24 hrs and IV ceftriaxone 2 gm q24 hrs for 8 weeks. Tentative stop date of 04/13/2020 - follow up labs for next 8 weeks: CBC, CK, BMP weekly ESR and CRP every other week Until Mar 05; Fax lab results to [phone], attn: DR Servin After Mar 05, Fax lab results to Dr. Oniel Coppola (Orthopedic surgeon, [place]) - right foot offloading, leg elevation, wound care - pt counseled about side effects for Daptomycin and Ceftriaxone and to inform me (before Mar 05) or Dr Hwang (ater Mar 05) - ID clinic f/u scheduled for Mar 02 2020 will follow Obinna Servin MD Infectious Diseases Time Spent With Patient Time: Total time spent is greater than 50% in coordination of care (as documented) at patient's floor/unit and/or counseling patient: QUALITY Stroke Symptom Onset Unknown: No VTE Deep Vein Thrombosis/Pulmonary Embolism Present on Admission: No
== END 2020-02-19 14:10 | disposition home or self-care (01) | DRG 478 ==
LOC: SUR 10:54 → MEDSUR 17:50
PROVIDERS: ADMIT Orthopaedic Surgery Sports Medicine; ATTEND Orthopaedic Surgery Sports Medicine

== ENCOUNTER 2020-06-04 05:05 | Inpatient (IN) ==
[2020-05-26 17:47] LABS: Appearance,Urine CLEAR (Clear); Bacteria,Urine MOD /hpf (0); Bilirubin,Urine Negative (Negative); Color,Urine YELLOW; Culture Indicated,Urine yes; Glucose,Urine (UA) Negative (Negative); Ketones,Urine Negative (Negative); Leukocyte Esterase,Urine 25 /ug (Negative); Mucus,Urine FEW /hpf; Nitrate,Urine Negative (Negative); Protein,Urine Negative (Negative); Specific Gravity,Urine 1.013 (1.000-1.035); Urine Blood Negative (Negative); Urine Hyaline Cast 3 /lph (0-2); Urine RBC 0 /hpf (0-1); Urine Squamous Epithelial Cell < 1 /hpf (0-4); Urine WBC 11 /hpf (0-4); Urobilinogen,Urine Negative
[2020-05-26 19:16] LABS: INR 0.9 (0.9-1.1); Prothrombin Time 12.8 sec (11.9-14.5)
[2020-05-26 20:11] LABS: Basophils # (Auto) 0.04 K/mcL (0.00-0.20); Basophils % (Auto) 0.9 % (0.0-2.0); Eosinophils % (Auto) 6.5 % (0.0-7.0); Hematocrit 32.1 % (36.0-48.0); Hemoglobin 10.6 g/dL (12.0-15.0); Lymphocytes # (Auto) 1.27 K/mcL (1.50-4.80); Lymphocytes % (Auto) 27.5 % (15.0-49.0); Mean Cell Volume 91.7 fL (80.0-100.0); Mean Platelet Volume 10.2 fL (7.4-10.4); Monocytes # (Auto) 0.44 K/mcL (0.10-0.90); Monocytes % (Auto) 9.5 % (1.0-12.0); Neutrophils % (Auto) 55.6 % (38.0-78.0); Platelet Count 171 K/mcL (140-440); Red Cell Distribution Width 12.8 % (11.5-14.5); WBC 4.6 K/mcL (4.5-11.0)
[2020-05-26 20:36] LABS: Blood Urea Nitrogen 41 mg/dL (8-23); Calcium 9.2 mg/dL (8.6-10.4); Carbon Dioxide 28 mmol/L (22-30); Chloride 98 mmol/L (96-108); Glomerular Filtration Rate 35; Glucose 94 mg/dL (70-105)
[~2020-06-04 05:05] MED LIST changes: -CELECOXIB 200 MG CAPSULE PO SCH; -GABAPENTIN 300 MG CAPSULE PO SCH; -ceFAZolin 3 GM in DEXTROSE 5% IN WATER 50 ML IV SCH; -oxyCODONE 10 MG TAB.ER.12H PO SCH
[2020-06-04] MEDS ORDERED: oxyCODONE 10 MG TAB.ER.12H PO SCH (06:00)
[2020-06-04] MEDS ORDERED: GABAPENTIN 300 MG CAPSULE PO SCH ×2 (06:00→21:00)
[2020-06-04] MEDS ORDERED: ceFAZolin 3 GM in DEXTROSE 5% IN WATER 50 ML IV SCH (06:00)
[2020-06-04 07:27] LABS: Appearance,Urine CLEAR (Clear); Bacteria,Urine MANY /hpf (0); Bilirubin,Urine Negative (Negative); Color,Urine YELLOW; Culture Indicated,Urine No; Glucose,Urine (UA) Negative (Negative); Ketones,Urine Negative (Negative); Leukocyte Esterase,Urine 75 /ug (Negative); Nitrate,Urine POS (Negative); Protein,Urine Negative (Negative); Specific Gravity,Urine 1.012 (1.000-1.035); Urine Blood Negative (Negative); Urine Hyaline Cast 7 /lph (0-2); Urine RBC 1 /hpf (0-1); Urine Squamous Epithelial Cell 7 /hpf (0-4); Urine Transitional Epi Cells < 1 /hpf (0-2); Urine WBC 18 /hpf (0-4); Urobilinogen,Urine Negative
[2020-06-04] MEDS ORDERED: DEXAMETHASONE 10 MG/ML VIAL ONE (07:32)
[2020-06-04] MEDS ORDERED: KETAMINE HCL 50 MG/ML ML ONE (07:32)
[2020-06-04] MEDS ORDERED: GLYCOPYRROLATE 0.2 MG/ML VIAL IV ONE (07:32)
[2020-06-04] MEDS ORDERED: MIDAZOLAM HCL 2 MG/ML ORAL.SOL PO ONE (07:32)
[2020-06-04] MEDS ORDERED: PROPOFOL 200 MG/20 ML VIAL IV ONE (07:32)
[2020-06-04] MEDS ORDERED: PHENYLEPHRINE 10 MG/ML VIAL ONE (07:32)
[2020-06-04] MEDS ORDERED: ONDANSETRON 4 MG/2 ML VIAL ONE (07:32)
[2020-06-04] MEDS ORDERED: LIDOCAINE HCL/PF 100 MG/5 ML SYRINGE IV ONE (07:32)
--- NOTE | 2020-06-04 09:43 | General Surgery Procedure Note ---
Date of procedure: Note initiated : 06/04/20 at 9:41 am Service Date, if different from initiated Date: [] Pre-op diagnosis: left hip osteoarthritis Post-op diagnosis: same Procedure: left total hip arthroplasty Findings: oa Anesthesia: spinal Surgeon: Christian Nolen Tank Truck Mechanic: Vin Dave Estimated blood loss: 250 Pathology: none sent Condition: stable Disposition: PACU
--- NOTE | 2020-06-04 09:46 | Discharge Plan ---
Discharge Instructions - ZOHAIB Patient Instructions Total Hip Protocol: Follow activity instructions as provided by Physical Therapy. Discharge Plan Patient/Caregiver Discharge Instructions Activity: ambulate only with your walker and as per physical therapy Diet: Regular Diet Prescriptions: No Action furosemide 40 mg tablet 40 mg PO QDAY RF: 0 bupropion HCl 100 MG tablet sustained-release 12 hr 100 mg PO DAILY RF: 0 gabapentin 300 MG capsule 300 mg PO TID RF: 0 diclofenac sodium 75 MG tablet 75 mg PO BID RF: 0 hydroxychloroquine 200 MG tablet 400 mg PO BID RF: 0 losartan 100 MG tablet 100 mg PO DAILY RF: 0 oxybutynin chloride 10 mg Tablet Extended Release 24hr 10 mg PO HS RF: 0 hydrocodone-acetaminophen [[place]] 10-325 mg Tablet 1 tab PO Q12HP PRN (Reason: Pain) RF: 0 gabapentin 300 mg Capsule 900 mg PO QHS RF: 0 morphine 15 mg Tablet Extended Release 15 mg PO Q12H RF: 0 ergocalciferol (vitamin D2) 1,250 mcg (50,000 unit) Capsule 1,250 mcg PO MOTH@0900 RF: 0 Restasis 0.05 % Dropperette 1 drp OPHTHALMIC (EYE) Q12H RF: 0 duloxetine 20 mg Capsule, Delayed Rel Sprinkle 60 mg PO DAILY RF: 0 nitrofurantoin macrocrystal 100 mg Capsule 100 mg PO QHS RF: 0 triamterene-hydrochlorothiazid [Maxzide-25mg] 37.5-25 mg Tablet 1 tab PO QDAY RF: 0 Myrbetriq 50 mg Tablet Extended Release 24 Hr 50 mg PO QDAY RF: 0 Follow Up Plan Follow up with: Vin Dave PA-C [Physician] - 06/16/20 9:00 am Patient Disposition: Xfer SNF Rehab Potential: Good I certify that the patient requires SNF services: Yes Overall status at discharge: patient is progressing back to baseline Discharge Orders: Discharge Order (Routine); Ordered 06/07/20 Ordered By: Christian Nolen Discharge Comment: chief complaint: hip osteoarthritis s/p zohaib Interventions Interventions: IV at Discharge Last Done: 06/04/20 07:09
[2020-06-04] MEDS ORDERED: FLEETS ADULT ENEMA PR PRN (09:47)
[2020-06-04] MEDS ORDERED: TRANEXAMIC ACID 1,000 MG/10 ML VIAL IV SCH (09:47)
[2020-06-04] MEDS ORDERED: METHOCARBAMOL 750 MG TABLET PO PRN (09:47)
[2020-06-04] MEDS ORDERED: BISACODYL 10 MG SUPP.RECT PR PRN (09:47)
[2020-06-04] MEDS ORDERED: POLYETHYLENE GLYCOL 3350 17 GM PACKET PO PRN (09:47)
[2020-06-04] MEDS ORDERED: oxyCODONE/APAP 5/325MG TABLET PO PRN (09:47)
[2020-06-04] MEDS ORDERED: ONDANSETRON 4 MG ODT TABLET SL PRN (09:47)
[2020-06-04] MEDS ORDERED: MAGNESIUM HYDROXIDE 30 ML ORAL.SUSP PO PRN (09:47)
[2020-06-04] MEDS ORDERED: ONDANSETRON 4 MG/2 ML VIAL IV PRN ×2 (09:47→09:50)
[2020-06-04] MEDS ORDERED: MEPERIDINE 25 MG/ML SYRINGE IV PRN (09:50)
[2020-06-04] MEDS ORDERED: PROMETHAZINE 25 MG/ML VIAL IV PRN (09:50)
[2020-06-04] MEDS ORDERED: BENZOCAINE/MENTHOL 1 LOZENGE PO PRN (09:50)
[2020-06-04] MEDS ORDERED: fentaNYL 100 MCG/2 ML VIAL IV PRN (09:50)
[2020-06-04] MEDS ORDERED: ACETAMINOPHEN 1,000 MG/100 ML BOTTLE IV ONE (09:50)
[2020-06-04] MEDS ORDERED: IPRATROPIUM/ALBUTEROL 3 ML AMPUL.NEB NEB PRN (09:50)
[2020-06-04] MEDS ORDERED: DIAZEPAM 10 MG/2 ML SYRINGE IV PRN (09:50)
[2020-06-04] MEDS ORDERED: METHOCARBAMOL 1,000 MG/10 ML VIAL IV PRN (09:50)
[2020-06-04] MEDS ORDERED: LACTATED RINGERS 1,000 ML IV SCH (10:00)
[2020-06-04] MEDS ORDERED: GENTAMICIN SULFATE 800 MG/20 ML VIAL IR ONE (10:28)
--- NOTE | 2020-06-04 11:00 | XRay Report ---
INDICATION: Post-Op Total Hip TECHNIQUE: AP pelvis. AP and crosstable lateral left hip COMPARISON: None. FINDINGS: Status post left total hip arthroplasty. Normal anatomic alignment. Mild postsurgical soft tissue gas. Incidental note is made of degenerative disc disease in the lower lumbar spine IMPRESSION: Left total hip arthroplasty Interpreted and Authenticated by: Christian Daniels 06/04/20
[2020-06-04] MEDS: morphine 15 MG TAB.SR.12H PO SCH ×2 (11:36→21:42)
[2020-06-04] MEDS: LACTATED RINGERS 1,000 ML IV SCH ×2 (11:36→18:30)
--- NOTE | 2020-06-04 11:48 | Operative Note ---
DATE OF OPERATION: 06/04/2020 PREOPERATIVE DIAGNOSIS: Degenerative joint disease, left hip. POSTOPERATIVE DIAGNOSIS: Degenerative joint disease, left hip. PROCEDURE: Left total hip arthroplasty. SURGEON: Jeanna Nolen M.D. PNEUMATIC TUBE OPERATOR SURGEON: Roni Dave PA-C. The PA's assistance was required for the safe and efficient completion of the entire case. This providers expertise and technical skill were required throughout the case. The PA assisted with preoperative coordination, intraoperative retraction, wound closure, dressing and splint application, as well as postoperative documentation and care coordination. ANESTHESIA: Spinal with LMA assist. ESTIMATED BLOOD LOSS: 150 mL. COMPLICATIONS: None noted. SPECIMENS REMOVED: None. DRAINS: None. IMPLANTS: DePuy [place] Joseph Gription acetabular shell 54 mm diameter; DePuy [place] Hole Eliminator PS; DePuy [place] Joseph cancellous bone screw 6.5 x 20; DePuy [place] Joseph Altrx polyethylene acetabular liner +4, 10-degree, 36 x 54; DePuy Biolox delta ceramic femoral head +5, 36 mm diameter; DePuy femoral stem Actis DuoFix hip prosthesis cementless, size 5, standard collar. INDICATIONS: The patient has had a longstanding history of worsening pain in the hip that has failed conservative treatment. Radiographs have confirmed advanced degenerative joint disease. After a long discussion about treatment options, the patient elected to proceed with a hip arthroplasty. The risks and benefits were discussed with the patient in detail including, but not limited to, the risks of anesthesia, problems with the heart or lungs related to anesthesia, infection, compromise or injury to the nerves and blood vessels, deep venous thrombosis, pulmonary embolism, pneumonia, continued pain after surgery, worsening pain or symptoms after surgery, swelling, loss of motion, instability, leg length discrepancy, and need for repeat surgery. DESCRIPTION OF PROCEDURE: The patient was seen in pre-anesthesia waiting room where all questions were answered and the correct side and site were identified and marked. The patient was then brought to the operating room and administered the anesthetic and given pre-operative antibiotics. A time-out was then called. The patient was placed in the lateral decubitus position with all prominences well-padded using the [place] frame and the extremity was prepped and draped in the usual sterile fashion. Anesthesia gave the patient 1 gm of tranexamic acid via an intravenous route. A standard posterior approach was made. We dissected through the skin and subcutaneous tissue to the deep fascia. The deep fascia was split in line with the incision and a Charnley retractor was placed. We exposed, tagged, and incised the short external rotators and piriformis tendon and retracted them posteriorly to help protect the sciatic nerve which was palpated throughout the case. We then performed a T-capsulotomy and tagged the capsule edges. Prior to dislocating the hip, we set a length and offset gauge from a Steinmann pin in the iliac wing to a mary alice on the greater trochanter. The hip was then dislocated and a femoral neck osteotomy was performed to the pre-surgical templated level off the lesser trochanter. The head was removed and sized. We next turned our attention to the acetabulum. Retractors were placed for optimal visualization. A complete labral excision was performed. The capsule was preserved for later closure. We began reaming using anatomic landmarks with the DePuy [place] Joseph acetabular system. We medialized the cup and reamed up to provide good fill and coverage of the trial. When the trial was stable and appropriately positioned with approximately 20 degrees of anteversion and 45 degrees of abduction, we impacted the DePuy [employer] Joseph cup and placed a cancellous screw in the posterior-superior quadrant. Osteophytes were removed from around the shell. We placed the trial liner and turned our attention to the femur. We placed retractors for visualization, internally rotated the femur, and established intramedullary access. We broached using the DePuy Tri-Lock stem to a stable platform medial, lateral, and rotationally with the appropriate version. We then performed a calcar reaming off the broach. Trials were then placed and optimized for leg length and stability. We used the leg length and offset guide to confirm our trials. Best stability, length, and offset characteristics were obtained with these sizes. We removed all trials and impacted the polyethylene acetabular liner in a standard fashion after a thorough irrigation. We then impacted the femoral stem to its broached location and placed the head. Final reduction was performed. Again, good stability, leg length, and offset characteristics were noted. We irrigated with three liters of antibiotic saline. We closed the capsule with #2 FiberWire. We closed the fascia with a combination of #2 Stratafix and 0 Vicryl. We closed the subcutaneous tissue and skin in layers out to Dermabond on the skin. A sterile pressure dressing and abduction wedge was applied. All needle and sponge counts were correct. The patient was transferred to the recovery room in stable condition. SUZANNA:brendan Job ID: [id number] Doc ID: [id number] Jeanna Nolen MD
[2020-06-04] MEDS: ceFAZolin 1 GM VIAL IV SCH (14:41)
[2020-06-04] MEDS: 0.9 % SODIUM CHLORIDE 10 ML SYRINGE IV SCH ×2 (14:42→21:42)
[2020-06-04] MEDS: morphine 4 MG/ML VIAL IV PRN ×2 (14:44→19:44)
[2020-06-04] MEDS: GABAPENTIN 300 MG CAPSULE PO SCH ×2 (16:29)
[2020-06-04] MEDS: BENZOCAINE/MENTHOL 1 LOZENGE PO PRN ×2 (16:29→19:44)
[2020-06-04] MEDS ORDERED: HYDROcodone/APAP 10/325MG TABLET PO ONE (19:45)
[2020-06-04] MEDS ORDERED: SENNOSIDES 1 TABLET PO SCH (21:00)
[2020-06-04] MEDS ORDERED: OXYBUTYNIN CHLORIDE 5 MG TAB.XL.24H PO SCH (21:00)
[2020-06-04] MEDS: DULoxetine 30 MG CAPSULE PO SCH (21:41)
[2020-06-04] MEDS: DOCUSATE SODIUM 100 MG CAPSULE PO SCH (21:41)
[2020-06-04] MEDS: ASPIRIN 81 MG TAB.CHEW PO SCH (21:42)
[2020-06-05] MEDS: ceFAZolin 1 GM VIAL IV SCH (00:19)
[2020-06-05] MEDS: HYDROcodone/APAP 10/325MG TABLET PO PRN ×3 (00:19→08:20)
[2020-06-05] MEDS ORDERED: HYDROcodone/APAP 10/325MG TABLET PO ONE ×2 (00:24→04:23)
[2020-06-05] MEDS: LACTATED RINGERS 1,000 ML IV SCH (02:47)
[2020-06-05] MEDS: 0.9 % SODIUM CHLORIDE 10 ML SYRINGE IV SCH (04:20)
[2020-06-05] MEDS: morphine 4 MG/ML VIAL IV PRN (06:57)
[2020-06-05 07:11] LABS: Hematocrit 30.9 % (36.0-48.0); Hemoglobin 10.4 g/dL (12.0-15.0)
[2020-06-05] MEDS: DOCUSATE SODIUM 100 MG CAPSULE PO SCH (08:11)
[2020-06-05] MEDS: DULoxetine 30 MG CAPSULE PO SCH (08:11)
[2020-06-05] MEDS: GABAPENTIN 300 MG CAPSULE PO SCH (08:12)
[2020-06-05] MEDS: ASPIRIN 81 MG TAB.CHEW PO SCH (08:12)
--- NOTE | 2020-06-05 08:56 | General Surgery Progress Note ---
SUBJECTIVE Subjective Patient information: Note initiated : 06/05/20 at 8:55 am Service Date, if different from initiated Date: [] Patient: Eva Hernandez 69 y/o F admitted on 06/04/20 for Left Total Hip Arthroplasty Posterior. Chief Complaint: [follow up left hip replacement] Constitutional Vitals: Vital Signs Temp Pulse Resp BP Pulse Ox 98.2 F 93 H 18 113/75 91 06/05/20 07:32 06/05/20 07:32 06/05/20 07:32 06/05/20 07:32 06/05/20 07:32 Period Temp Pulse Resp BP Sys/[place] Pulse Ox Last 24 Hr 96.4 F-98.3 F 58-93 9-18 90-126/49-75 2-100 Intake and Output 06/04/20 06/05/20 06/05/20 21:59 05:59 13:59 Intake Total 1000 1100 Output Total 800 1250 Balance 200 -150 Weight 277 lb 15 oz Intake & Output: Intake & Output 06/04/20 06/05/20 06/05/20 21:59 05:59 13:59 Intake Total 1000 1100 Output Total 800 1250 Balance 200 -150 Weight 277 lb 15 oz Intake: IV 1000 Lactated Ringers 1,000 ml @ 125 1000 mls/hr IV .Q8H [facility] Rx#: [id number] Oral 1100 Output: Urine Catheter Amount 675 Straight 675 Void Amount 125 1250 Other: Urine Appearance Clear Clear Straight Clear Urine Color Dark Yellow Dark Yellow Straight Pale Urine Odor Strong Strong Extremities Exam Extremities exam: Present joint swelling, normal capillary refill, tenderness, Foot pink and warm and neurovascular intact; Absent calf tenderness A/P Narrative A/P Narrative: pod 1 s/p left zohaib wbat pain control dvt prophylaxis d/c planning - rehab today Time Spent With Patient Time: Total time spent is greater than 50% in coordination of care (as documented) at patient's floor/unit and/or counseling patient:
[2020-06-05] MEDS ORDERED: MIRABEGRON 50 MG PO SCH (09:00)
[2020-06-05] MEDS ORDERED: LOSARTAN 50 MG TABLET PO SCH (09:00)
[2020-06-05] MEDS ORDERED: buPROPion 100 MG TAB.SR.12H PO SCH (09:00)
[2020-06-05] MEDS ORDERED: NITROFURANTOIN SR 100 MG CAPSULE PO SCH (09:00)
[2020-06-05] MEDS ORDERED: FUROSEMIDE 40 MG TABLET PO SCH (09:00)
[2020-06-05] MEDS ORDERED: TRIAMTERENE/HYDROCHLOROTHIAZID 1 CAP CAPSULE PO SCH (09:00)
[2020-06-05] MEDS ORDERED: HYDROXYCHLOROQUINE 200 MG TABLET PO SCH (09:00)
[2020-06-05] MEDS: morphine 15 MG TAB.SR.12H PO SCH (09:31)
== END 2020-06-05 10:10 | DRG 470 ==
LOC: MEDSUROUT 05:05 → MEDSUR 05:08
PROVIDERS: ADMIT Orthopaedic Surgery Sports Medicine; ATTEND Orthopaedic Surgery Sports Medicine